=== PATIENT | female | born 2000 | race Caucasian/White ===

== ENCOUNTER 2022-05-12 06:55 | Emergency (ER) | payer SELFPAY ==
[2022-05-12 06:59] VITALS: BP 117/72; PULSE 77; RESP 18; TEMP 98.3
[2022-05-12] MEDS ORDERED: ONDANSETRON 4 MG/2 ML VIAL IVPUSH ONE (07:57)
[2022-05-12] MEDS ORDERED: SODIUM CHLORIDE 0.9% 500 ML INFUS.BAG IV ONE (07:57)
[2022-05-12] MEDS ORDERED: ONDANSETRON 4 MG/2 ML VIAL ONE (08:12)
[2022-05-12 08:42] LABS: EPI CELLS 28 /uL (0-25.1); HYALINE CASTS 2 /uL (0-3.1); PH,URINE 5.5 (5.0-8.0); URINE APPEARANCE CLEAR; URINE BACTERIA 1016 /uL (0-1359); URINE BILIRUBIN NEGATIVE (NEGATIVE); URINE COLOR ORANGE; URINE GLUCOSE (UA) NEGATIVE (NEGATIVE); URINE KETONE 2+ (NEGATIVE); URINE LEUK ESTERASE 2+ (NEGATIVE); URINE NITRITE NEGATIVE (NEGATIVE); URINE PROTEIN 2+ (NEGATIVE); URINE RBC 83 /uL (0-23.9); URINE WBC 173 /uL (0-25.8)
[2022-05-12 08:49] LABS: BASO % 0.2 % (0-2.0); EOS % 0.2 % (0-4.5); HEMATOCRIT 41.6 % (32.4-45.2); HEMOGLOBIN 14.1 GM/dL (10.7-15.3); LYMPH % 8.6 % (8-40); MCH 28.6 pg (25.7-33.7); MEAN CELL VOLUME 83.9 fl (80-96); MONO % 3.8 % (3.8-10.2); NEUT % 87.2 % (42.8-82.8); PLATELET COUNT 393 10^3/uL (134-434); RBC 4.95 M/mm3 (3.60-5.2); RDW 13.5 % (11.6-15.6); WHITE BLOOD COUNT 11.8 K/mm3 (4.0-10.0)
[2022-05-12 08:54] LABS: CALCIUM 9.3 mg/dL (8.5-10.1)
[2022-05-12 08:55] LABS: ALBUMIN 4.1 g/dl (3.4-5.0); BLOOD UREA NITROGEN 6.6 mg/dL (7-18)
[2022-05-12 08:58] LABS: CREATININE 0.7 mg/dL (0.55-1.3)
[2022-05-12 08:59] LABS: TOT PROT 7.1 g/dl (6.4-8.2)
[2022-05-12 09:00] LABS: BILIRUBIN,TOTAL 0.8 mg/dL (0.2-1)
[2022-05-12 09:02] LABS: HCG,QUALITATIVE URINE Negative
[2022-05-12] MEDS ORDERED: morphine CARPU-JECT 4 MG/1 ML DISP.SYRIN IVPUSH ONE (10:09)
[2022-05-12] MEDS ORDERED: morphine SULFATE 4 MG/ML VIAL ONE (10:14)
== END 2022-05-12 13:20 | disposition home or self-care (01) ==
LOC: JER 06:55
PROC: 3E033NZ Introduction of Analgesics, Hypnotics, Sedatives into Peripheral Vein, Percutaneous Approach (ICD-10-PCS; principal; 2022-05-12)
PROC: 3E033GC Introduction of Other Therapeutic Substance into Peripheral Vein, Percutaneous Approach (ICD-10-PCS; 2022-05-12)
DX: N30.00 Acute cystitis without hematuria (principal); N39.0 Urinary tract infection, site not specified
CPT/HCPCS: 0241U-QW; 36415; 74177-TC; 76830-TC; 80053; 81003; 83690; 84703; 85025; 99285-25; Q9967

== ENCOUNTER 2022-05-13 05:14 | Emergency (ER) | payer SELFPAY ==
[2022-05-13 05:18] VITALS: BMI 34.3
[2022-05-13] MEDS ORDERED: KETOROLAC TROMETHAMINE 30 MG/1 ML VIAL IVPUSH ONE (08:01)
[2022-05-13] MEDS ORDERED: CEFTRIAXONE 1,000 MG in DEXTROSE 5%-WATER - 50 ML IVPB ONE (08:01)
[2022-05-13] MEDS ORDERED: SODIUM CHLORIDE 0.9% 1000 ML INFUS.BAG IV ONE (08:01)
[2022-05-13] MEDS ORDERED: ONDANSETRON 4 MG/2 ML VIAL IVPUSH ONE (08:01)
[2022-05-13] MEDS ORDERED: CEFTRIAXONE 1 GM/50 ML BAG ONE (08:17)
[2022-05-13] MEDS ORDERED: KETOROLAC TROMETHAMINE 30 MG/1 ML VIAL ONE (08:17)
[2022-05-13] MEDS ORDERED: ONDANSETRON 4 MG/2 ML VIAL ONE (08:17)
[2022-05-13 08:34] LABS: BASO % 0.2 % (0-2.0); EOS % 0.7 % (0-4.5); HEMATOCRIT 40.8 % (32.4-45.2); HEMOGLOBIN 13.6 GM/dL (10.7-15.3); LYMPH % 13.3 % (8-40); MCH 28.2 pg (25.7-33.7); MCHC 33.4 g/dl (32.0-36.0); MEAN CELL VOLUME 84.4 fl (80-96); MEAN PLT VOLUME 7.8 fl (7.5-11.1); NEUT % 81.8 % (42.8-82.8); PLATELET COUNT 401 10^3/uL (134-434); RBC 4.83 M/mm3 (3.60-5.2); RDW 13.7 % (11.6-15.6); WHITE BLOOD COUNT 10.7 K/mm3 (4.0-10.0)
[2022-05-13 09:00] LABS: CALCIUM 9.2 mg/dL (8.5-10.1)
[2022-05-13 09:01] LABS: ALBUMIN 4.1 g/dl (3.4-5.0); BLOOD UREA NITROGEN 7.6 mg/dL (7-18)
[2022-05-13 09:04] LABS: CREATININE 0.6 mg/dL (0.55-1.3)
[2022-05-13 09:05] LABS: BILIRUBIN,TOTAL 0.7 mg/dL (0.2-1); TOT PROT 7.1 g/dl (6.4-8.2)
[2022-05-13 11:23] VITALS: BP 118/62; PULSE 69; RESP 17; TEMP 98.3
== END 2022-05-13 11:24 | disposition left against medical advice (07) ==
LOC: JER 05:14
PROC: 3E03329 Introduction of Other Anti-infective into Peripheral Vein, Percutaneous Approach (ICD-10-PCS; principal; 2022-05-13)
PROC: 3E0333Z Introduction of Anti-inflammatory into Peripheral Vein, Percutaneous Approach (ICD-10-PCS; 2022-05-13)
PROC: 3E033GC Introduction of Other Therapeutic Substance into Peripheral Vein, Percutaneous Approach (ICD-10-PCS; 2022-05-13)
DX: N10 Acute pyelonephritis (principal)
CPT/HCPCS: 36415; 80053; 85025; 87040; 87086; 99284-25